=== PATIENT | female | born 1990 | race African-American/Black ===

== ENCOUNTER 2016-08-14 00:36 | Emergency (ER) | payer OTHER ==
[~2016-08-14] VITALS: Ht 160 cm; Wt 102.1 kg
[~2016-08-14 00:36] MED LIST: AMOXICILLIN 50500 MG PO; HYDROCODONE-AP1 EAC6 PO; IBUPROFEN 600600 M1 PO; PERCOCET 5-3251 EACH PO
[2016-08-14] MEDS ORDERED: FLEXERIL PO (02:08)
[2016-08-14 02:37] VITALS: BP 154/86
== END 2016-08-14 02:09 | disposition home or self-care (01) ==
LOC: ER 00:36
DX: G89.29 Other chronic pain (principal); R68.84 Jaw pain; F17.210 Nicotine dependence, cigarettes, uncomplicated

== ENCOUNTER 2019-03-31 08:06 | Emergency (ER) | payer OTHER ==
[~2019-03-31] VITALS: Ht 157.5 cm; Wt 118.8 kg
[~2019-03-31 08:06] MED LIST changes: +FLEXERIL PO
[2019-03-31] MEDS ORDERED: NOHOMEMEDICATIONS (09:06)
[2019-03-31 11:18] VITALS: BP 136/72
== END 2019-03-31 11:19 | disposition home or self-care (01) ==
LOC: ER 08:06
DX: F07.81 Postconcussional syndrome (principal); E66.01 Morbid (severe) obesity due to excess calories; F17.210 Nicotine dependence, cigarettes, uncomplicated; Z68.42 Body mass index [BMI] 45.0-49.9, adult

== ENCOUNTER 2021-03-24 19:39 | Emergency (ER) | payer OTHER ==
[~2021-03-24] VITALS: Ht 160 cm; Wt 104.3 kg
[~2021-03-24 19:39] MED LIST changes: +NOHOMEMEDICATIONS
[2021-03-24 19:41] VITALS: BP 150/83
[2021-03-24] MEDS ORDERED: CEPHALEXIN500 MG PO (20:04)
[2021-03-24] MEDS ORDERED: NORCO5 PO ×3 (20:05→20:21)
[2021-03-24] MEDS ORDERED: IBU600 MG PO (20:05)
== END 2021-03-24 20:20 | disposition home or self-care (01) ==
LOC: ER 19:39
DX: N61.0 Mastitis without abscess (principal); F17.210 Nicotine dependence, cigarettes, uncomplicated